=== PATIENT | female | born 1960 | race Caucasian/White ===

== ENCOUNTER 2017-03-11 16:42 | Emergency (ER) | payer OTHER, BC ==
[2017-03-11 16:54] VITALS: BP 142/94; PULSE 81; TEMP 98.1; BMI 35.4
--- NOTE | 2017-03-11 17:33 | PDOC ---
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 Fell onto right foot and caused an avulsion of her right great toenail. Occurred: reports: just prior to arrival, this afternoon Severity: reports: moderate Pain Location: reports: lower extremity (right great toe) Associated Symptoms (Fall): denies symptoms Past History - Travel Traveled outside of the country in the last 30 days: No Close contact w/someone who was outside of country & ill: No - Past Medical History Allergies/Adverse Reactions: Allergies Allergy/AdvReac Type Severity Reaction Status Date / Time No Known Allergies Allergy Verified 03/11/17 16:48 Home Medications: Ambulatory Orders Aspirin Coated [Ecotrin] 81 mg PO DAILY 06/24/12 Losartan Potassium 25 mg PO DAILY 06/24/12 Meclizine HCl [Antivert -] 25 mg PO TID #20 tablet 06/24/12 Meclizine HCl [Antivert] 25 mg PO TID 06/24/12 Metoprolol Tartrate [Lopressor] 12.5 mg PO BID 06/24/12 Sulfamethoxazole/Trimethoprim [Bactrim *Ds*] 1 tab PO BID #10 tablet 12/08/13 Ciprofloxacin [Cipro (Restricted To Id)] 500 mg PO Q12H #20 tablet 10/29/14 Ibuprofen [Motrin -] 600 mg PO TID PRN #21 tablet 10/29/14 Meclizine HCl [Antivert -] 25 mg PO QID PRN #20 tablet 10/29/14 Oxycodone HCl/Acetaminophen [Percocet 5-325 mg Tablet -] 1 - 2 tab PO Q4H PRN # 7 tablet MDD 4 03/11/17 HTN: Yes - Psycho/Social/Smoking Cessation Hx Anxiety: No Suicidal Ideation: No Smoking Status: No Smoking History: Never smoked Number of Cigarettes Smoked Daily: 0 Hx Alcohol Use: No Drug/Substance Use Hx: No Substance Use Type: None Trauma Specific PMHX - Complaint Specific PMHX Back Injury: No Neck Injury: No Review of Systems - Review of Systems Able to Perform ROS?: Yes Is the patient limited Indian proficient: Yes Constitutional: Yes: See HPI. No: Symptoms Reported HEENTM: No: Symptoms Reported Respiratory: No: Symptoms reported Musculoskeletal: Yes: Symptoms Reported, See HPI, Joint Pain, Joint Swelling, Other (right great toenail avulsed from hyponychium) Integumentary: Yes: Symptoms Reported, See HPI, Bruising Neurological: Yes: See HPI. No: Symptoms reported All Other Systems: Reviewed and Negative *Physical Exam - Vital Signs Last Vital Signs Temp Pulse Resp BP Pulse Ox 98.1 F 81 18 142/94 97 03/11/17 16:44 03/11/17 16:44 03/11/17 16:44 03/11/17 16:44 03/11/17 16:44 - Physical Exam General Appearance: Yes: Nourished, Appropriately Dressed, Apparent Distress, Mild Distress HEENT: positive: CARLY[place], Normal ENT Inspection, TMs Normal, Pharynx Normal Neck: positive: Supple. negative: Tender Musculoskeletal: positive: Other. negative: Normal Inspection Extremity: positive: Normal Range of Motion, Tender, Swelling, Other (right great toenail avulsed from epionychium completely, with macerated eponychial tissue. No profuse bleeding, and no laceration subungual. Range of motion intact but is painful. 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, Fully Oriented, Alert, Normal Mood/ Affect, Normal Response, Motor Strength 5/5 Procedures - Laceration/Wound Repair Right Toe 1st digit Wound Length: to 2.5 cm Wound Explored: clean Progress: 03/11/17 18:23 eponychial avulsion of right great toe Medical Decision Making - Medical Decision Making 03/11/17 18:40 Right great toenail avulsion, digital block performed, and nail was reintroduced under epionychium, anchored with Xeroform gauze bulky dressing and cast shoe *DC/Admit/Observation/Transfer Diagnosis at time of Disposition: Avulsed toenail Qualifiers: Encounter type: initial encounter Qualified Code(s): S91.209A - Unspecified open wound of unspecified toe(s) with damage to nail, initial encounter - Discharge Dispostion Disposition: HOME Condition at time of disposition: Stable Admit: No - Referrals Referrals: Ariel Suh MD [Staff Physician] - - Patient Instructions Printed Discharge Instructions: DI for Ingrown Toenail Additional Instructions: Rest, elevate, avoid strenuous activity or heavy lifting until healed Leave dressing on for the next 48 hours, Then may remove dressing gently and wash area with soap and water. Reapply bacitracin ointment and dressing daily for the next 5 days- use cast shoe until pain resolves May use 1 or 2 tabs of percocet for sev ere pain- tomorrow Motrin should resolve pain May use Tylenol or Motrin for pain relief followup with Dr Suh, Podiatry next week for wound chec k. - Post Discharge Activity Work/School Note: Back to Work
[2017-03-11] MEDS ORDERED: OXYCODONE/APAP 5/325MG COMBO TABLET PO ONE (18:41)
== END 2017-03-11 18:59 | disposition home or self-care (01) ==
LOC: JERFT 16:42 → JER 16:42 → JERFT 18:59
DX: S91.211A Laceration without foreign body of right great toe with damage to nail, initial encounter (principal); W22.8XXA Striking against or struck by other objects, initial encounter; Y93.89 Activity, other specified; Y92.218 Other school as the place of occurrence of the external cause; Y99.0 Civilian activity done for income or pay; I10 Essential (primary) hypertension
CPT/HCPCS: 73630-TC-RT; 99281-25

== ENCOUNTER 2023-02-08 22:16 | Emergency (ER) | payer SELFPAY ==
[2023-02-08 22:29] VITALS: BP 149/83; PULSE 94; RESP 18; TEMP 98.4; BMI 35.4
[2023-02-08 23:17] LABS: BASO % 0.3 % (0-2.0); EOS % 0.6 % (0-4.5); HEMATOCRIT 38.1 % (32.4-45.2); HEMOGLOBIN 12.7 GM/dL (10.7-15.3); MCH 31.3 pg (25.7-33.7); MCHC 33.4 g/dl (32.0-36.0); MEAN CELL VOLUME 93.7 fl (80-96); MEAN PLT VOLUME 9.3 fl (7.5-11.1); MONO % 6.8 % (3.8-10.2); NEUT % 61.3 % (42.8-82.8); PLATELET COUNT 247 10^3/uL (134-434); RBC 4.07 M/mm3 (3.60-5.2); RDW 13.1 % (11.6-15.6); WHITE BLOOD COUNT 9.9 K/mm3 (4.0-10.0)
[2023-02-08 23:46] LABS: POTASSIUM 3.4 mmol/L (3.5-5.1)
[2023-02-08 23:48] LABS: CALCIUM 9.4 mg/dL (8.5-10.1)
[2023-02-08 23:49] LABS: ALBUMIN 3.9 g/dl (3.4-5.0); BLOOD UREA NITROGEN 17.9 mg/dL (7-18)
[2023-02-08 23:52] LABS: CREATININE 0.9 mg/dL (0.55-1.3); PHOSPHOROUS 3.2 mg/dL (2.5-4.9)
[2023-02-08 23:53] LABS: BILIRUBIN,TOTAL 0.3 mg/dL (0.2-1); TOT PROT 7.5 g/dl (6.4-8.2)
== END 2023-02-09 02:24 | disposition home or self-care (01) ==
LOC: JER 22:16
DX: R00.2 Palpitations (principal)
CPT/HCPCS: 36415; 71045-TC-FY; 80053; 83735; 84100; 84484; 85025; 93005; 93010; 99285-25